=== PATIENT | female | born 1950 | race Caucasian/White ===

== ENCOUNTER → 2018-05-04 | Outpatient (CLI) | payer MEDICARE, BC ==
--- NOTE | 2018-05-04 12:14 | PCVCIMAG ---
APPROVED REPORT Indications Bruit Risk Factors History of Smoking Doppler Spectral Velocity Analysis PSV / EDVPSV / EDV ECA (R) 98 / 20 cm/sECA (L) 68 / 28 cm/s dICA (R) 84 / 40 cm/sdICA (L) 82 / 36 cm/s Bernabe (R) 97 / 46 cm/smICA (L) 101 / 49 cm/s pICA (R) 76 / 33 cm/spICA (L) 88 / 41 cm/s Bulb (R) 64 / 29 cm/sBulb (L) 88 / 21 cm/s dCCA (R) 80 / 34 cm/sdCCA (L) 95 / 34 cm/s mCCA (R) 95 / 41 cm/smCCA (L) 100 / 32 cm/s Vert (R) 58 / 22 cm/sVert (L) 54 / 16 cm/s ICA/CCA 1.21ICA/CCA 1.06 Basic Measurements Blood Pressure: Pulses: Right Left RightLeft Brachial(Sitting) 110/04zbIy375/80mmHgTemporal Real Time B-Mode Imaging Vert. (R)AntegradeVert. (L)Antegrade Findings The right carotid bulb has no significant plaque. The right proximal internal carotid artery shows no significant stenosis. The right common carotid artery shows no significant stenosis. The right external carotid artery shows no significant stenosis. The left carotid bulb has no significant plaque. The left proximal internal carotid artery shows no significant stenosis. The left common carotid artery shows no significant stenosis. The left external carotid artery shows no significant stenosis. Conclusion 1. Normal bilateral carotid duplex 2. Antegrade vertebral flow
--- NOTE | 2018-05-04 13:13 | PCVCIMAG ---
APPROVED REPORT Study performed: 05/04/2018 11:31:17 Exam: Stress Echocardiogram Indication: Hypertension, Hyperlipidemia, Dyspnea Patient Location: Echo lab Stress Nurse: Lluvia Mejia RN Room #: 2 Status: routine Ht: 5 ft 4 in HR: 87 bpm BP: 112/70 mmHg Rhythm: NSR Medical History Medical History: HTN, Hyperlipidemia Cardiac Risk Factors: HTN, Hyperlipidemia Previous Cardiac Procedures: none Pretest Chest Pain Characteristics: No chest pain Exercise History: Physically active Procedure The patient underwent an Exercise Stress Test using the Dalton Protocol. Blood pressure, heart rate, and EKG were monitored. An Echocardiogram was performed by production maintenance technician in four stages in quad fashion. At peak stress, four selected images were obtained and placed side by side with resting images for comparison. Stress Test Details Stress Test: Exercise stress testing was performed using a Dalton protocol. HR Resting HR: 87 bpmMax Heart Rate (APMHR): 152 bpm Max HR Achieved: 162 bpmTarget HR (85% APMHR): 129 bpm % of APMHR: 106 Recovery HR: 102 bpm HR response to stress: Normal HR response to stress BP Resting BP: 112/70 mmHg Max BP: 154/78 mmHg Recovery BP: 134/66 mmHg BP response to stress: Normal blood pressure response to stress. ECG Resting ECG: Sinus Rhythm Stress ECG: Sinus Rhythm ST Change: Non-ischemic Maximum ST Deviation: 0 mm Arrhythmia: Rare PVCs, PACs Recovery ECG: Sinus Rhythm Recovery ST Change: Non-ischemic Recovery ST Deviation: 0 mm Recovery Arrhythmia: None Clinical Reason for Termination: Maximal effort Stress Symptoms: leg fatigue Exercise duration: 10 min 00 sec Highest Stage Achieved: Stage 4: 4.2 mph at 16% grade. Exercise capacity: 13.4 METs Angina Score: None No complications. Stress ECG Conclusion The patient exercised according to the DALTON protocol for 10:00 mins; achieving a work level of 13.4 METS. The resting heart rate of 91bpm angelita to a maximum heart rate of 162bpm. This value represent 106% of the maximal, age-predicted heart rate. The resting blood pressure of 112/70 mmHg, angelita to a maximum blood pressure of 154/78 mmHg. The exercise test was stopped due to dyspnea. Mcclure Treadmill Score is 10.0 which is Low risk. Pre-Stress Echo The resting Echocardiogram showed normal left ventricular contractility with an estimated Ejection Fraction of about 55-60%. Normal wall motion in all segments on baseline images. Post-Stress Echo The stress Echocardiogram showed normal left ventricular contractility with an estimated Ejection Fraction of about 65-70%. Normal augmentation of wall motion in all segments on post stress images. Conclusion Clinical Response: Non-ischemic Exercise Capacity: Superior Stress ECG Response: Non-ischemic Stress Echo Images: Non-ischemic No clinical, EKG or echocardiographic evidence for ischemia. No echocardiographic evidence for exercise induced ischemia. Normal stress echocardiogram with maximal exercise stress. No prior study available for comparison. <Conclusion> No clinical, EKG or echocardiographic evidence for ischemia. No echocardiographic evidence for exercise induced ischemia. Normal stress echocardiogram with maximal exercise stress.
== END | disposition home or self-care (01) ==
LOC: PCVCIMAG 10:18
PROVIDERS: ATTEND Internal Medicine
DX: R09.89 Other specified symptoms and signs involving the circulatory and respiratory systems (principal); R42 Dizziness and giddiness; E78.5 Hyperlipidemia, unspecified; R06.02 Shortness of breath; R03.0 Elevated blood-pressure reading, without diagnosis of hypertension; I10 Essential (primary) hypertension; Z87.891 Personal history of nicotine dependence
CPT/HCPCS: 93325; 93351; 93880

== ENCOUNTER → 2018-10-25 | Outpatient (CLI) | payer MEDICARE, BC | END | disposition home or self-care (01) | LOC: PCVCCLINIC 11:00 | PROVIDERS: ATTEND Internal Medicine | DX: I10 Essential (primary) hypertension (principal); E78.5 Hyperlipidemia, unspecified; K21.9 Gastro-esophageal reflux disease without esophagitis; M19.90 Unspecified osteoarthritis, unspecified site; Z79.82 Long term (current) use of aspirin; Z90.49 Acquired absence of other specified parts of digestive tract; Z87.891 Personal history of nicotine dependence; Z88.8 Allergy status to other drugs, medicaments and biological substances | CPT/HCPCS: 36415; 80061; 93005; G0463 ==